=== PATIENT | female | born 1945 | race Caucasian/White ===

== ENCOUNTER → 2019-11-10 10:33 | Outpatient (BNVA) | payer MEDICARE, OTHER, SELFPAY ==
[2019-11-12 12:28] LABS: Ferritin 146 ng/mL (15-150); Iron 116 ug/dL (37-145); Percent Saturation 50.2 % (20-50); Total Iron Binding Capacity 231 mcg/dl; Unsaturated Iron Binding 115 ug/dL (112-347)
== END ==
PROVIDERS: Family Provider Nurse Practitioner; PCP Nurse Practitioner; Visit Provider Internal Medicine Hematology & Oncology
DX: E03.8 Other specified hypothyroidism (principal); H11.32 Conjunctival hemorrhage, left eye
CPT/HCPCS: 80053; 82728; 83540; 83550; 84443

== ENCOUNTER 2019-11-12 12:47 | Outpatient (CLI) | payer MEDICARE, OTHER, SELFPAY ==
[2019-11-12 14:06] LABS: Basophils # 0.1 10^3/uL (0.0-0.1); Basophils % 0.8 %; Eosinophils # 0.2 10^3/uL (0.0-0.8); Eosinophils % 2.5 %; Hematocrit 42.6 % (37.0-47.0); Hemoglobin 13.4 g/dL (11.5-15.3); Lymphocytes # 1.2 10^3/uL (0.8-4.8); Lymphocytes % 18.7 %; Mean Corpuscular HGB Conc 31.5 g/dL (30.0-36.0); Mean Corpuscular Hemoglobin 28.9 pg (28.0-34.0); Mean Corpuscular Volume 91.8 fL (81-99); Mean Platelet Volume 11.7 fL (7.4-10.4); Monocytes # 0.6 10^3/uL (0.2-0.9); Neutrophils # 4.3 10^3/uL (1.8-7.7); Neutrophils % 67.8 %; Nucleated Red Blood Cells % 0 %; Platelet Count 196 10^3/cmm (130-400); Red Blood Count 4.64 10^6/uL (4.1-5.3); Red Cell Distribution Width 20.3 % (12.1-15.1); White Blood Count 6.4 10^3/uL (4.0-10.0)
--- NOTE | 2019-11-12 14:30 | ONC FU_ITS ---
Dr. Birto follow up note Patient: Linda Medina Unit #: [id number]: [id number] Dicatated By: María Brito M.D.Date of Visit:Nov 12, 2019 Onc Med Follow-up/Prog Note History of Present Illness: Mrs. Linda Medina, is a 74-year-old female who was diagnosed with iron deficiency anemia in 2018 at that time she was started on oral iron supplement ,as per patient initially she took it on daily basis but there was no improvement then her iron dose was increased twice a day by her primary care physician and took it for 3-4 months without much improvement in her blood counts but never required blood transfusion. Patient denies any history of melena or hematochezia or hemoptysis or hematemesis patient denies any history of abdominal pain patient denies any history of vaginal bleeding or hematuria. Patient denies any history of jaundice. Patient had persistent moderate anemia in her labs done on 05/27/2019 showed white blood count 5.6 and globin 10.2 crit 31.9 platelets 192,000 and MCV 76.4 ferritin was 25 as per patient she did develop intolerance to oral iron so stopped taking it patient was referred to Dr. Carter for further workup and she underwent EGD and colonoscopy on 03/04/2019 in both were unremarkable subsequently in June 2019 patient underwent capsule endoscopy in [place] .[place] , as per patient that was also unremarkable showed no evidence of bleeding from small bowel. Patient denies any weight loss patient denies any palpitation or shortness of breath at rest but complaining of generalized weakness and fatigue especially with exertion.Denies any peripheral numbness.Status post Injectafer 750 mg IV weekly ???2 in July 2019 with excellent response e.g. resolution of anemia and normalization of iron stores. Came for follow-up, denies any specific complaints, no fever or chills, no nausea vomiting, no diarrhea constipation, no melena hematochezia, no jaundice, no palpitation or shortness of breath or dyspnea on exertion. Medications: Aspirin 1 Tablet (of 325 mg) Oral daily, Calcitriol 1 Capsule (of 0.25 mcg) Oral daily, Calcium 1 Tablet (of 600 mg) Oral b.i.d., Centrum Silver 1 Tablet Oral daily, Levothyroxine Sodium 1 Tablet (of 125 mcg) Oral daily, PARoxetine HCl 1 Tablet (of 20 mg) Oral daily, Propafenone HCl 1 Tablet (of 150 mg) Oral b.i.d. Allergies: Hydrogen Peroxide, Iodine, and Penicillins. Review of Systems: Constitutional - Appetite is good but weight is stable. No fever, chills, hot flashes, or night sweats. Energy level is good, ENMT - No sinus congestion/drainage. No mouth sores. No sore throat or difficulty swallowing, Hematologic/Lymphatic - Negative for easy bruising, Respiratory - No shortness of breath. No cough. No pleuritic pain or hemoptysis, Cardiovascular - No angina pain. No palpitations, Gastrointestinal - No nausea or vomiting. No heartburn or acid reflux. No diarrhea or constipation. No blood in the stool or black stools, Genitourinary (F) - No dysuria or hematuria. Negative for urinary frequency. No urgency or incontinence, Musculoskeletal - No joint or bone pain, Neurologic - No headache or dizziness. No numbness/paresthesias or other focal neurologic symptoms, Psychiatric - No anxiety or depression. No insomnia. Vital Signs: Performed on Nov 12, 2019 13:44 Height - 65.00 in Weight - 149.6 lbs (HIGH) BSA - 1.75 sq.m BMI - 24.89 Temperature - 97.8 F (LOW) Pulse - 55 /min (LOW) Respiration - 18 /min BP - 122/64 mm(hg) O2 Sat - 99 % Pain - 0 Performance Status: 0 - Fully active, able to carry on all predisease activities without restrictions. (ECOG) Physical Examination: ENMT - No oral exudates, ulcers, masses, thrush or mucositis. Oropharynx clear. Tongue normal, Respiratory - Lungs are clear to auscultation without rhonchi or wheezing, Cardiovascular - Regular rate and rhythm of heart, Abdomen - Non-tender, non-distended, Good bowel sounds. No guarding or rebound tenderness. No pulsatile masses, Extremities - no edema. Lab/Imaging: Test performed on Nov 12, 2019 13:36 WBC 6.4 10 3/uL RBC 4.64 10 6/uL HGB 13.4 g/dL HCT 42.6 % MCV 91.8 fL MCH 28.9 pg MCHC 31.5 g/dL RDW 20.3 % Platelet Count 196 10 3/cmm MPV 11.7 fL Neutrophils 4.3 10 3/uL Lymphocytes 1.2 10 3/uL Monocytes 0.6 10 3/uL Eosinophils 0.2 10 3/uL Basophils 0.1 10 3/uL Neutrophil % 67.8 % Lymphocyte % 18.7 % Monocyte % 10.0 % Eosinophil % 2.5 % Basophils % 0.8 % Test performed on Nov 12, 2019 13:01 Ferritin 146 ng/mL % Iron Saturation 50.2 % Iron, Total 116 mcg/dL TIBC 231 mcg/dL Test performed on Sep 15, 2019 10:06 UIBC 103 ug/dL CBC Slide Review SLIDE REVIEW PERFORM Test performed on Aug 03, 2019 11:19 Vitamin B12 394 pg/mL Test performed on Aug 03, 2019 06:10 Folate, Serum 5.1 ng/mL Retic Count % 0.9 % Impression: Microcytic hypochromic anemia with low ferritin e.g. due to iron deficiency anemia probably due to iron malabsorption or chronic intermittent GI blood loss now with normal colonoscopy/EGD done in February 2019/capsule endoscopy. Considering her age Concurrent underlying myelodysplasia can't be ruled out. Generalized weakness and fatigue probably due to above No response and GI intolerance to oral iron, Status post Injectafer 750 mg weekly ???2 in July 2019, with excellent response e.g. resolution of anemia and normalization of iron stores. Plan: discussed with patient regarding her labs white blood count 6.4 globin 13.4 crit 42.6 platelets 196,000 and, iron saturation 50.2%, ferritin 146, iron 116, TIBC 243 Clinically, patient is doing well, with no new signs symptoms, follow-up CBC showed normal hemoglobin and iron studies but her ferritin has decreased to 146 from 300 on 09/15/2019. We'll continue to monitor her CBC and iron stores she will return to clinic in 2 months with CBC and iron studies. Signed By: María Brito M.D. <<Signature on File>>
== END 2019-11-12 12:48 | disposition home or self-care (01) ==
LOC: ONCMED 12:50
PROVIDERS: Family Provider Nurse Practitioner; PCP Nurse Practitioner; Visit Provider Internal Medicine Hematology & Oncology
DX: D50.9 Iron deficiency anemia, unspecified (principal)
CPT/HCPCS: 85025; G0463

== ENCOUNTER 2020-03-08 11:31 | Outpatient (CLI) | payer MEDICARE, OTHER, SELFPAY ==
[2020-03-08 11:59] LABS: Basophils % 0.8 %; Eosinophils # 0.2 10^3/uL (0.0-0.8); Eosinophils % 3.6 %; Hematocrit 43.7 % (37.0-47.0); Hemoglobin 13.5 g/dL (11.5-15.3); Lymphocytes # 1.1 10^3/uL (0.8-4.8); Lymphocytes % 21.3 %; Mean Corpuscular HGB Conc 30.9 g/dL (30.0-36.0); Mean Corpuscular Hemoglobin 31.2 pg (28.0-34.0); Mean Corpuscular Volume 100.9 fL (81-99); Mean Platelet Volume 11.7 fL (7.4-10.4); Monocytes # 0.7 10^3/uL (0.2-0.9); Monocytes % 14.3 %; Neutrophils % 59.8 %; Nucleated Red Blood Cells % 0 %; Platelet Count 193 10^3/cmm (130-400); Red Blood Count 4.33 10^6/uL (4.1-5.3); Red Cell Distribution Width 12.1 % (12.1-15.1)
[2020-03-08 12:21] LABS: Ferritin 95 ng/mL (15-150); Iron 116 ug/dL (37-145); Percent Saturation 46.4 % (20-50); Total Iron Binding Capacity 250 mcg/dl; Unsaturated Iron Binding 134 ug/dL (112-347)
--- NOTE | 2020-03-08 13:48 | ONC FU_ITS ---
Dr. Brito follow up note Patient: Linda Medina Unit #: [id number]: [id number] Dicatated By: María Brito M.D.Date of Visit:Mar 08, 2020 Onc Med Follow-up/Prog Note History of Present Illness: Mrs. Linda Medina, is a 74-year-old female who was diagnosed with iron deficiency anemia in 2018 at that time she was started on oral iron supplement ,as per patient initially she took it on daily basis but there was no improvement then her iron dose was increased twice a day by her primary care physician and took it for 3-4 months without much improvement in her blood counts but never required blood transfusion. Patient denies any history of melena or hematochezia or hemoptysis or hematemesis patient denies any history of abdominal pain patient denies any history of vaginal bleeding or hematuria. Patient denies any history of jaundice. Patient had persistent moderate anemia in her labs done on 05/27/2019 showed white blood count 5.6 and globin 10.2 crit 31.9 platelets 192,000 and MCV 76.4 ferritin was 25 as per patient she did develop intolerance to oral iron so stopped taking it patient was referred to Dr. Carter for further workup and she underwent EGD and colonoscopy on 03/04/2019 in both were unremarkable subsequently in June 2019 patient underwent capsule endoscopy in [place] .[place] , as per patient that was also unremarkable showed no evidence of bleeding from small bowel. Patient denies any weight loss patient denies any palpitation or shortness of breath at rest but complaining of generalized weakness and fatigue especially with exertion.Denies any peripheral numbness.Status post Injectafer 750 mg IV weekly ???2 in July 2019 with excellent response e.g. resolution of anemia and normalization of iron stores. Came for follow-up, denies any specific complaints, no fever or chills, no nausea or vomiting, no diarrhea or constipation, no melena or hematochezia, no shortness of breath or palpitation, appetite is good. Medications: Aspirin 1 Tablet (of 325 mg) Oral daily, Calcitriol 1 Capsule (of 0.25 mcg) Oral daily, Calcium 1 Tablet (of 600 mg) Oral b.i.d., Centrum Silver 1 Tablet Oral daily, Levothyroxine Sodium 1 Tablet (of 125 mcg) Oral daily, PARoxetine HCl 1 Tablet (of 20 mg) Oral daily, Propafenone HCl 1 Tablet (of 150 mg) Oral b.i.d. Allergies: Hydrogen Peroxide, Iodine, and Penicillins. Review of Systems: Review of Systems is not available for this patient. Vital Signs: Vitals are not available for this patient. Performance Status: 0 - Fully active, able to carry on all predisease activities without restrictions. (ECOG) Physical Examination: ENMT - No mouth sores, no thrush, no jaundice, Respiratory - Lungs are clear to auscultation, Cardiovascular - Regular rate and rhythm of heart, Abdomen - Soft, bowel sounds present, Extremities - No visible edema or rash. Lab/Imaging: Test performed on Nov 12, 2019 13:36 WBC 6.4 10 3/uL RBC 4.64 10 6/uL HGB 13.4 g/dL HCT 42.6 % MCV 91.8 fL MCH 28.9 pg MCHC 31.5 g/dL RDW 20.3 % Platelet Count 196 10 3/cmm MPV 11.7 fL Neutrophils 4.3 10 3/uL Lymphocytes 1.2 10 3/uL Monocytes 0.6 10 3/uL Eosinophils 0.2 10 3/uL Basophils 0.1 10 3/uL Neutrophil % 67.8 % Lymphocyte % 18.7 % Monocyte % 10.0 % Eosinophil % 2.5 % Basophils % 0.8 % Test performed on Nov 12, 2019 13:01 Ferritin 146 ng/mL % Iron Saturation 50.2 % Iron, Total 116 mcg/dL TIBC 231 mcg/dL Test performed on Sep 15, 2019 10:06 UIBC 103 ug/dL CBC Slide Review SLIDE REVIEW PERFORM Impression: Microcytic hypochromic anemia with low ferritin e.g. due to iron deficiency anemia probably due to iron malabsorption or chronic intermittent GI blood loss now with normal colonoscopy/EGD done in February 2019/capsule endoscopy. Considering her age Concurrent underlying myelodysplasia can't be ruled out. Generalized weakness and fatigue probably due to above No response and GI intolerance to oral iron, Status post Injectafer 750 mg weekly ???2 in July 2019, with excellent response e.g. resolution of anemia and normalization of iron stores. Plan: Discussed with patient regarding her labs white blood count 5 hemoglobin 13.5 crit 43.7 platelets 193,000 iron saturation 46.4% ferritin 95 compared to 146 on November 12, 2019 iron 116. Clinically, patient is doing well, no new signs symptoms, follow-up labs showed hemoglobin in normal range as well as iron stores, although further drop in her ferritin but still in normal range. We will continue to monitor patient was advised to consume foods rich in iron especially greens. She will return to clinic in 2 months with CBC and iron studies. Signed By: María Brito M.D. <<Signature on File>>
== END 2020-03-08 11:32 | disposition home or self-care (01) ==
LOC: ONCMED 11:35
PROVIDERS: PCP Nurse Practitioner; Visit Provider Internal Medicine Hematology & Oncology
DX: D50.9 Iron deficiency anemia, unspecified (principal); M81.0 Age-related osteoporosis without current pathological fracture; E03.9 Hypothyroidism, unspecified; F41.1 Generalized anxiety disorder; H11.32 Conjunctival hemorrhage, left eye
CPT/HCPCS: 82728; 83540; 83550; 85025; G0463

== ENCOUNTER → 2020-05-12 15:14 | Outpatient (BNVA) | payer MEDICARE, OTHER, SELFPAY | PROVIDERS: PCP Nurse Practitioner; Visit Provider Nurse Practitioner | DX: E03.8 Other specified hypothyroidism (principal); D50.9 Iron deficiency anemia, unspecified; M81.0 Age-related osteoporosis without current pathological fracture; F41.1 Generalized anxiety disorder | CPT/HCPCS: 80053; 83540; 84443 ==

== ENCOUNTER → 2020-05-31 14:14 | Outpatient (BNVA) | payer MEDICARE, OTHER, SELFPAY | PROVIDERS: PCP Nurse Practitioner; Visit Provider Nurse Practitioner | DX: E87.5 Hyperkalemia (principal) | CPT/HCPCS: 80048 ==

== ENCOUNTER → 2020-11-11 10:57 | Outpatient (BNVA) | payer MEDICARE, OTHER, SELFPAY | PROVIDERS: PCP Nurse Practitioner; Visit Provider Family Medicine | DX: M25.552 Pain in left hip (principal); M79.605 Pain in left leg; E03.8 Other specified hypothyroidism; D50.9 Iron deficiency anemia, unspecified; E87.5 Hyperkalemia; M81.0 Age-related osteoporosis without current pathological fracture; F41.1 Generalized anxiety disorder | CPT/HCPCS: 73502; 73552; 80053; 83540; 84443; 85025 ==

== ENCOUNTER 2020-12-14 06:00 | Outpatient (RCR) | payer MEDICARE, OTHER, SELFPAY | END 2020-12-28 23:59 | disposition home or self-care (01) | LOC: TPT 06:00 | PROVIDERS: PCP Nurse Practitioner; Referring Provider Nurse Practitioner; Visit Provider Nurse Practitioner | DX: M79.10 Myalgia, unspecified site (principal) | CPT/HCPCS: 97110; 97161 ==

== ENCOUNTER → 2021-05-11 09:15 | Outpatient (BNVA) | payer MEDICARE, OTHER, SELFPAY | PROVIDERS: PCP Nurse Practitioner; Visit Provider Nurse Practitioner | DX: E03.8 Other specified hypothyroidism (principal); D50.9 Iron deficiency anemia, unspecified; Z13.6 Encounter for screening for cardiovascular disorders | CPT/HCPCS: 80053; 80061; 83540; 84443 ==

== ENCOUNTER → 2021-07-12 14:51 | Outpatient (BNVA) | payer MEDICARE, OTHER, SELFPAY | PROVIDERS: PCP Nurse Practitioner; Visit Provider Nurse Practitioner | DX: I48.0 Paroxysmal atrial fibrillation (principal); N17.9 Acute kidney failure, unspecified | CPT/HCPCS: 80048 ==

== ENCOUNTER → 2021-12-12 12:05 | Outpatient (BNVA) | payer MEDICARE, OTHER, SELFPAY | PROVIDERS: PCP Nurse Practitioner; Visit Provider Nurse Practitioner | DX: D50.9 Iron deficiency anemia, unspecified (principal); E03.8 Other specified hypothyroidism; M81.0 Age-related osteoporosis without current pathological fracture; F41.1 Generalized anxiety disorder | CPT/HCPCS: 80053; 83540; 84443; 85025 ==

== ENCOUNTER → 2022-01-18 10:57 | Outpatient (BNVA) | payer MEDICARE, OTHER, SELFPAY | PROVIDERS: PCP Nurse Practitioner; Visit Provider Internal Medicine Cardiovascular Disease | DX: I48.0 Paroxysmal atrial fibrillation (principal); E03.8 Other specified hypothyroidism; F41.1 Generalized anxiety disorder; M81.0 Age-related osteoporosis without current pathological fracture; N17.9 Acute kidney failure, unspecified | CPT/HCPCS: 99214 ==

== ENCOUNTER → 2022-04-20 09:25 | Outpatient (BNVA) | payer MEDICARE, OTHER, SELFPAY | PROVIDERS: PCP Nurse Practitioner; Visit Provider Nurse Practitioner | DX: E03.8 Other specified hypothyroidism (principal); D50.9 Iron deficiency anemia, unspecified | CPT/HCPCS: 80053; 83540; 84443; 85025 ==

== ENCOUNTER → 2022-06-25 11:12 | Outpatient (BNVA) | payer MEDICARE, OTHER, SELFPAY | PROVIDERS: PCP Nurse Practitioner; Visit Provider Nurse Practitioner | DX: E03.8 Other specified hypothyroidism (principal); M81.0 Age-related osteoporosis without current pathological fracture; F41.1 Generalized anxiety disorder; K58.0 Irritable bowel syndrome with diarrhea | CPT/HCPCS: 80053; 80061; 84443 ==

== ENCOUNTER → 2022-08-15 11:14 | Outpatient (BNVA) | payer MEDICARE, OTHER, SELFPAY | PROVIDERS: PCP Nurse Practitioner; Visit Provider Nurse Practitioner | DX: E03.8 Other specified hypothyroidism (principal) | CPT/HCPCS: 80053; 84443 ==

== ENCOUNTER → 2023-01-09 09:27 | Outpatient (BNVA) | payer MEDICARE, OTHER, SELFPAY | PROVIDERS: PCP Nurse Practitioner; Visit Provider Nurse Practitioner | DX: F41.1 Generalized anxiety disorder (principal); E03.8 Other specified hypothyroidism; Z79.899 Other long term (current) drug therapy | CPT/HCPCS: 80053; 80061; 84443 ==

== ENCOUNTER → 2023-01-21 13:28 | Outpatient (BNVA) | payer MEDICARE, OTHER, SELFPAY | PROVIDERS: PCP Nurse Practitioner; Visit Provider Specialist | DX: I48.0 Paroxysmal atrial fibrillation (principal); Z79.01 Long term (current) use of anticoagulants | CPT/HCPCS: 93005; 99214 ==

== ENCOUNTER → 2023-04-11 08:21 | Outpatient (BNVA) | payer MEDICARE, OTHER, SELFPAY | PROVIDERS: PCP Nurse Practitioner; Visit Provider Nurse Practitioner | DX: E03.8 Other specified hypothyroidism (principal); F41.1 Generalized anxiety disorder; D50.9 Iron deficiency anemia, unspecified | CPT/HCPCS: 80053; 84443; 85025 ==

== ENCOUNTER → 2023-05-28 14:45 | Outpatient (BNVA) | payer MEDICARE, OTHER, SELFPAY | PROVIDERS: PCP Nurse Practitioner; Visit Provider Internal Medicine Cardiovascular Disease | DX: I48.0 Paroxysmal atrial fibrillation (principal); Z79.01 Long term (current) use of anticoagulants | CPT/HCPCS: 99214 ==

== ENCOUNTER → 2023-07-08 11:00 | Outpatient (BNVA) | payer MEDICARE, SELFPAY | PROVIDERS: PCP Nurse Practitioner; Visit Provider Nurse Practitioner | DX: F41.1 Generalized anxiety disorder (principal); M81.0 Age-related osteoporosis without current pathological fracture; D50.9 Iron deficiency anemia, unspecified | CPT/HCPCS: 80053; 83540; 84443; 85025 ==

== ENCOUNTER 2023-08-30 19:12 | Emergency (ER) | payer MEDICARE, OTHER, SELFPAY ==
[2023-08-30] MEDS: EPINEPHrine 0.1 mg/mL SYR 10 mL 1 MG IVP ×4 (19:13→19:22)
[2023-08-30] MEDS: sodium bicarbonate 8.4% 1 mEq/mL 50mL Syr 50 MEQ IVP (19:17)
--- NOTE | 2023-08-30 19:44 | PC.NURSE ---
[facility] & [facility] has released the body.
--- NOTE | 2023-08-30 19:50 | PC.NURSE ---
[facility] notified, patient is not a candidate & they have released the body. Awaiting to hear from [facility].
--- NOTE | 2023-08-30 20:24 | ED_ITS ---
HPI - CPR General: Chief Complaint: Cardiac Arrest/CPR Stated Complaint: CPR Time Seen by Provider: 08/30/23 19:24 History of Present Illness: 78-year-old female with a history of atr ial fibrillation. She presents in cardiac arrest. She was having chest pain earlier in the evening, and the patient's began to drive her to the hospital. When the pain became much worse, he pulled over and called an ambulance. She was found by paramedics to be having significant centralized chest discomfort. After administration of aspirin, she evidently went unconscious. She was asystole on the monitor. 3 mg of epinephrine were given via ACLS protocol along with chest compressions and intubation and route to the hospital. She had been down approximately 20 to 30 minutes at that point on arrival here. She received 1 defibrillation for V-fib en route. On arrival here, she was found to be in asystole. Review of Systems General: Reports: ROS unobtainable due to endotracheal tube and ROS unobtainable due to medical condition [facility] ED PFSH: Medical History (Updated 08/30/23 @ 20:29 by Kermit Prince DO) Irritable bowel syndrome with diarrhea Post-menopausal osteoporosis Generalized anxiety disorder History of cataract right 2013 Paroxysmal atrial fibrillation Migraine without aura, intractable, without status migrainosus Iron deficiency anemia, unspecified Hernia, diaphragmatic Gout, unspecified Diverticulosis of intestine, part unspecified, without perforation or abscess without bleeding Chronic kidney disease, stage 3 (moderate) Adult onset hypothyroidism Surgical History History of dental surgery History of perforated ear drum Left required surgery History of sinus surgery right 2004 H/O knee surgery right 1964 History of appendectomy History of colonoscopy 2019 Family History Other Heart disease Denies family history of Anesthesia complication Bleeding disorder Social History Smoking and tobacco/nicotine status: never used tobacco/nicotine Second hand smoke exposure: No Alcohol intake: never Substance/Drug Use: never Caregiver/support person: No Lives independently: Yes Household members: spouse Housing: House Marital status: Current occupational status: retired Do you think of yourself as: Straight/Heterosexual Current gender identity: Female Physical Exam Const: GENERAL APPEARANCE: Limp noted ORIENTATION/CONSCIOUSNESS: Yes Other orientation findings (unresponsive) HENMT: COMMON NORMALS: normocephalic, atraumatic and Normal external nose present HEAD & SCALP: normocephalic and atraumatic FACE & SINUS: normal facial exam NOSE: Normal external nose present Eye: PUPIL: Yes Fixed pupils Neck/C-Spine: GENERAL: Yes other (Mild tracheal deviation with equal breath sounds bilateral) Chest: CHEST: Yes Symmetrical chest wall rise Resp: AUSCULTATION: rhonchi Cardio: OTHER: Pulseless GI: INSPECTION: No abdominal distension Neuro: LENKA COMA SCALE: document GCS findings [place] coma scale eye opening: None [place] coma scale verbal response: None [place] coma scale motor response: None [place] coma scale total score: 3 MDM - Cardiac Arrest/CPR Medical Decision Making The patient was found to be in asystole on arrival. ACLS protocol was continued. The patient was given 4 more milligrams of epinephrine, with bicarbonate intravenously. She was given fluid. She was ventilated via bag valve mask with good breath sounds. Chest compressions were continued according to ACLS protocol with regular pulse checks. The patient had a rhythm change from asystole to PEA briefly, but never regained any pulse, or shockable rhythm. Time of was called at 1922. No radiology studies performed this visit Critical Care Time Critical Care Time: Critical Care Time: Yes Total Critical Care Time: 35 Attestation: This case had a high probability of a clinically significant, sudden, or life threatening deterioration of this patient's condition which required my full and direct attention, intervention and personal management. Time does not include any procedures performed. Discharge Plan Discharge Patient Disposition: Clinical Impression: Cardiac arrest Condition: Stable Prescriptions: No Action multivitamin [Daily Multi-Vitamin] Tablet 1 tab PO DAILY omega-3 fatty acids 1,000 mg capsule 1,000 mg PO DAILY calcium carbonate-vitamin D3 600 mg-12.5 mcg (500 unit) capsule 3 cap PO DAILY paroxetine HCl 30 mg tablet 30 mg PO QDAY Qty: 90 0RF calcitriol 0.25 mcg capsule 0.25 mcg PO QDAY Qty: 90 0RF levothyroxine 150 mcg tablet 150 mcg PO QDAY Qty: 90 0RF Rx Instructions: Need apt in 11 weeks propafenone 225 mg tablet 225 mg PO BID Qty: 180 3RF Xarelto 20 mg tablet 20 mg PO DAILY Qty: 90 3RF Rx Instructions: must administer with evening meal Referrals: Max Bailey, [employer] DISPATCHER-[facility] [Primary Care Provider] - Coding Level of Care Code ED [employer] Project Manager for Cris Foster
== END 2023-08-30 21:06 | disposition expired ==
PROVIDERS: Emergency Provider Emergency Medicine; PCP Nurse Practitioner
DX: I46.9 Cardiac arrest, cause unspecified (principal); N18.30 Chronic kidney disease, stage 3 unspecified
CPT/HCPCS: 96374; 99285; J0171